=== PATIENT | male | born 1995 | race Caucasian/White ===

== ENCOUNTER 2018-09-30 20:37 | Emergency (ER) | payer BC ==
[~2018-09-30] VITALS: Ht 182.9 cm; Wt 81.8 kg
[2018-09-30 20:43] VITALS: BP 144/96; TEMP 97
[2018-09-30] MEDS ORDERED: ZYRTEC 10MG10 MG PO (21:19)
[2018-09-30] MEDS ORDERED: PEPCID 20MG TAB20 MG PO (22:56)
[2018-09-30] MEDS ORDERED: ATARAX 25MG25 MG/TAB PO (22:56)
[2018-09-30] MEDS ORDERED: EPIPEN 2-PAK1 MG/ML IM (22:56)
[2018-09-30] MEDS ORDERED: PREDNISONE20 MG PO (22:56)
[2018-09-30 23:25] VITALS: PULSE 89
== END 2018-09-30 23:27 | disposition home or self-care (01) ==
LOC: COL.ER 20:37
DX: L50.0 Allergic urticaria (principal); Z88.0 Allergy status to penicillin; Z88.2 Allergy status to sulfonamides; Z91.010 Allergy to peanuts
CPT/HCPCS: J7512